=== PATIENT | female | born 1970 | race Caucasian/White ===

== ENCOUNTER → 2020-10-31 09:05 | Outpatient (BNVA) | payer MEDICAID, SELFPAY | PROVIDERS: PCP Nurse Practitioner Family; Visit Provider Internal Medicine Rheumatology | DX: M25.50 Pain in unspecified joint (principal); M75.52 Bursitis of left shoulder; M19.041 Primary osteoarthritis, right hand; M19.042 Primary osteoarthritis, left hand; M47.892 Other spondylosis, cervical region; Z79.899 Other long term (current) drug therapy; Z11.1 Encounter for screening for respiratory tuberculosis; Z71.89 Other specified counseling; F17.200 Nicotine dependence, unspecified, uncomplicated | CPT/HCPCS: 20610; 99204 ==

== ENCOUNTER 2020-10-31 11:51 | Outpatient (CLI) | payer MEDICAID, SELFPAY ==
--- NOTE | 2020-10-31 12:03 | XR_ITS ---
WS: [id number] CHEST 2 VIEWS HISTORY: M19.90 - Unspecified osteoarthritis, unspecified site COMPARISON: None available. Lungs: Clear with no abnormality. No pleural effusion or pneumothorax. Cardiac size: Normal. Mediastinum/Aorta: Normal mediastinum. Bones: Normal. XR/XR chest 2V* [id number] IMPRESSION: Normal chest.
--- NOTE | 2020-10-31 12:03 | XR_ITS ---
WS: [id number] Right hand, 3 views, 10/31/2020 Clinical Data: M19.90 - Unspecified osteoarthritis, unspecified site Comparison: None. Findings: There is osteoarthritis of the right first IP joint and all the DIP joints of the second th rough fifth fingers with flexion deformity of the second through fifth DIP joints. There is osteoarth ritic change at the second through fifth PIP joints which is less severe. No fractures or dislocation s are seen. The soft tissues are normal. No periarticular demineralization or calcifications are seen . XR/XR hand RT min 3V* [id number] Impression: Osteoarthritis of the PIP and DIP joints of the right hand.
--- NOTE | 2020-10-31 12:03 | XR_ITS ---
WS: [id number] Left foot, 3 views, 10/31/2020 Clinical Data: M19.90 - Unspecified osteoarthritis, unspecified site Comparison: None. Findings: No fractures or dislocations are seen. No bone destruction or erosion is noted. The joint spaces and soft tissues are normal. No periarticular demineralization or calcifications are seen. There is an Achilles spur. XR/XR foot LT min 3V* [id number] Impression: Negative left foot.
--- NOTE | 2020-10-31 12:03 | XR_ITS ---
WS: [id number] Left hand, 3 views, 10/31/2020 Clinical Data: M19.90 - Unspecified osteoarthritis, unspecified site Comparison: None. Findings: There is osteoarthritic change of the second through fifth DIP joints of the left hand and the patien t left first IP joint. There is minimal osteoarthritic change of the second through fifth PIP joints with a soft tissue calcification on the radial side of the third PIP joint. There are no fractures or dislocations. No periarticular demineralization is noted. XR/XR hand LT min 3V* [id number] Impression: Osteoarthritis of the DIP and PIP joints of the left hand.
--- NOTE | 2020-10-31 12:03 | XR_ITS ---
WS: [id number] Cervical spine, 3 views, 10/31/2020 Clinical Data: M19.90 - Unspecified osteoarthritis, unspecified site Comparison: None. Findings: No compression fractures are seen. There is osteoarthritic spurring at C5-C6 with disc narr owing. There is an anterior-inferior spur at C4 There is minimal osteoarthritis in the left C1-C2 art iculation. There is no prevertebral soft tissue swelling. The odontoid is unremarkable. The lung api vickie are normal. There is minimal calcification in the region of the carotid bifurcations. XR/XR cervical spine 3V* [id number] Impression: Osteoarthritis at C4 and C5-C6 with accompanying disc space narrowing and minim al osteoarthritis on the left at the C1-C2 articulation.
--- NOTE | 2020-10-31 12:03 | XR_ITS ---
WS: [id number] Right foot, 3 views, 10/31/2020 Clinical Data: M19.90 - Unspecified osteoarthritis, unspecified site Comparison: None. Findings: No fractures or dislocations are seen. No bone destruction or erosion is noted. The joint spaces and soft tissues are normal. No periarticular demineralization or calcifications are seen. XR/XR foot RT min 3V* [id number] Impression: Negative right foot.
[2020-10-31 13:19] LABS: C Reactive Protein 2.3 mg/L (0.0-4.9)
[2020-10-31 13:25] LABS: Erythrocyte Sedimentation Rate 33 mm/hr (0-15)
[2020-10-31 13:34] LABS: 25 Hydroxy Vitamin D 36 ng/mL (30-100)
[2020-11-01 16:02] LABS: Cyclic Citrullinated Peptide <16 UNITS
[2020-11-02 14:16] LABS: Quantiferon Mitogen >10.00 IU/mL; Quantiferon Nil 0.02 IU/mL; Quantiferon TB Gold NEGATIVE (NEGATIVE)
== END 2020-10-31 11:52 | disposition home or self-care (01) ==
PROVIDERS: PCP Nurse Practitioner Family; Visit Provider Internal Medicine Rheumatology
DX: M19.90 Unspecified osteoarthritis, unspecified site (principal); M25.50 Pain in unspecified joint; Z79.899 Other long term (current) drug therapy; M25.512 Pain in left shoulder; M71.9 Bursopathy, unspecified
CPT/HCPCS: 36415; 71046; 72040; 73130; 73630; 82306; 85651; 86140; 86431; 86480; 96372; J1030

== ENCOUNTER → 2021-06-05 15:11 | Outpatient (BNVA) | payer MEDICAID, SELFPAY | PROVIDERS: PCP Nurse Practitioner Family; Visit Provider Internal Medicine Rheumatology | DX: M19.041 Primary osteoarthritis, right hand (principal); M19.042 Primary osteoarthritis, left hand; Z79.899 Other long term (current) drug therapy | CPT/HCPCS: 80076; 82565; 85025; 86140 ==

== ENCOUNTER → 2021-08-15 14:35 | Outpatient (BNVA) | payer MEDICAID, SELFPAY | PROVIDERS: PCP Nurse Practitioner Family; Visit Provider Internal Medicine Rheumatology | DX: M15.4 Erosive (osteo)arthritis (principal); M47.892 Other spondylosis, cervical region; Z79.899 Other long term (current) drug therapy; M75.52 Bursitis of left shoulder | CPT/HCPCS: 99214 ==

== ENCOUNTER → 2022-01-21 11:41 | Outpatient (BNVA) | payer MEDICAID, SELFPAY | PROVIDERS: Visit Provider Emergency Medicine | DX: R06.02 Shortness of breath (principal) | CPT/HCPCS: 71046 ==

== ENCOUNTER 2022-01-31 16:15 | Outpatient (CLI) | payer MEDICAID, SELFPAY ==
[2022-01-31] MEDS: iohexol 350 mg/mL 500 mL Btl (per mL) IV (16:38)
--- NOTE | 2022-01-31 17:00 | CTR_ITS ---
PROCEDURE INFORMATION: Exam: CT Chest With Contrast; Diagnostic Exam date and time: 01/31/2022 4:29 PM Age: 51 years old Clinical indication: Patient HX: History--recent pneumonia and bronchitis, hard coughing, RT low rib pain; Additional info: J18.9 - pneumonia, unspecified organism TECHNIQUE: Imaging protocol: Diagnostic computed tomography of the chest with contrast. Radiation optimization: All CT scans at this facility use at least one of these dose optimization techniques: automated exposure control; mA and/or kV adjustment per patient size (includes targeted exams where dose is matched to clinical indication); or iterative reconstruction. Contrast material: OMNI 350; Contrast volume: 80 ml; Contrast route: INTRAVENOUS (IV); COMPARISON: CR XR chest 2V* [id number] 01/21/2022 12:10 PM RADIATION DOSE METRICS: Total DLP (mGy-cm): 778.09 FINDINGS: Lungs: Unremarkable. No consolidation. No masses. Pleural spaces: Unremarkable. No pneumothorax. No pleural effusion. Heart: Unremarkable. No cardiomegaly. No pericardial effusion. Lymph nodes: Unremarkable. No enlarged lymph nodes. Vasculature: Unremarkable. No aortic aneurysm. Bones/joints: Unremarkable. No acute fracture. Soft tissues: Subcutaneous fat stranding in the lateral right lower chest and abdominal upper quadrant. There also seems to be some smooth muscular thickening. CT/CT chest w con* [id number] IMPRESSION: 1. Intramuscular hematoma in the lateral right upper quadrant the abdomen with adjacent fat stranding changes. No active bleeding seen. 2. No acute intrathoracic abnormality.
== END 2022-01-31 16:16 | disposition home or self-care (01) ==
LOC: RAD 16:16
PROVIDERS: Visit Provider Emergency Medicine
DX: J18.9 Pneumonia, unspecified organism (principal)
CPT/HCPCS: 71260

== ENCOUNTER → 2022-03-18 11:06 | Outpatient (BNVA) | payer MEDICAID, SELFPAY | PROVIDERS: Visit Provider Nurse Practitioner Family | DX: R68.89 Other general symptoms and signs (principal); M62.830 Muscle spasm of back; J22 Unspecified acute lower respiratory infection | CPT/HCPCS: 87400; 87426 ==

== ENCOUNTER → 2022-04-23 15:28 | Outpatient (BNVA) | payer MEDICAID, SELFPAY | PROVIDERS: Visit Provider Family Medicine | DX: J44.9 Chronic obstructive pulmonary disease, unspecified (principal); M19.90 Unspecified osteoarthritis, unspecified site; L73.2 Hidradenitis suppurativa; Z13.1 Encounter for screening for diabetes mellitus; Z13.6 Encounter for screening for cardiovascular disorders; M15.4 Erosive (osteo)arthritis; Z72.0 Tobacco use; F41.9 Anxiety disorder, unspecified; F10.21 Alcohol dependence, in remission; Z51.81 Encounter for therapeutic drug level monitoring; Z76.89 Persons encountering health services in other specified circumstances; M54.12 Radiculopathy, cervical region | CPT/HCPCS: 85025 ==

== ENCOUNTER → 2022-07-14 14:13 | Outpatient (BNVA) | payer MEDICAID, SELFPAY | PROVIDERS: PCP Family Medicine; Visit Provider Family Medicine | DX: M19.90 Unspecified osteoarthritis, unspecified site (principal); Z79.899 Other long term (current) drug therapy; Z13.6 Encounter for screening for cardiovascular disorders; Z13.1 Encounter for screening for diabetes mellitus; J44.9 Chronic obstructive pulmonary disease, unspecified; S69.91XA Unspecified injury of right wrist, hand and finger(s), initial encounter; R53.83 Other fatigue; R35.89 Other polyuria; Z83.3 Family history of diabetes mellitus; X58.XXXA Exposure to other specified factors, initial encounter | CPT/HCPCS: 73130; 80048; 80061; 80076; 82565; 83036; 84443; 85025; 86140 ==

== ENCOUNTER → 2022-12-02 09:45 | Outpatient (BNVA) | payer MEDICAID, SELFPAY | PROVIDERS: PCP Family Medicine; Referring Provider Internal Medicine Rheumatology; Visit Provider Internal Medicine Rheumatology | DX: M19.90 Unspecified osteoarthritis, unspecified site (principal); Z79.899 Other long term (current) drug therapy | CPT/HCPCS: 80076; 82565; 85025; 86140 ==

== ENCOUNTER → 2023-01-13 08:58 | Outpatient (BNVA) | payer MEDICAID, SELFPAY | PROVIDERS: PCP Family Medicine; Referring Provider Family Medicine; Visit Provider Surgery | DX: R22.43 Localized swelling, mass and lump, lower limb, bilateral (principal) | CPT/HCPCS: 99204 ==

== ENCOUNTER 2023-01-29 14:08 | Outpatient (CLI) | payer MEDICAID, SELFPAY ==
--- NOTE | 2023-01-29 | US_ITS ---
WS: [id number] ULTRASOUND SOFT TISSUES RIGHT lower extremity. HISTORY: Palpable area mid RIGHT tibia. COMPARISON: None available. TECHNIQUE: 2-D and color Doppler imaging is submitted. No obvious abnormalities noted over the mid RIGHT tibia at the area of the superficial soft tissue no dule. IMPRESSION: Negative ultrasound mid RIGHT tibia.
--- NOTE | 2023-01-29 15:00 | US_ITS ---
WS: [id number] ULTRASOUND SOFT TISSUES LEFT tibia. HISTORY: Palpable nodule mid LEFT tibia and LEFT ankle. COMPARISON: None available. TECHNIQUE: 2-D and color Doppler imaging is submitted. Ultrasound is directed to the areas of palpable abnormality as indicated by the patient. There is no underlying mass or soft tissue identified at either location over the mid tibia or ankle. IMPRESSION: Negative ultrasound mid LEFT tibia and ankle.
== END 2023-01-29 14:09 | disposition home or self-care (01) ==
LOC: RAD 14:09
PROVIDERS: PCP Family Medicine; Visit Provider Surgery
DX: R22.43 Localized swelling, mass and lump, lower limb, bilateral (principal)
CPT/HCPCS: 76882

== ENCOUNTER → 2023-02-11 15:30 | Outpatient (BNVA) | payer MEDICAID, SELFPAY | PROVIDERS: PCP Family Medicine; Visit Provider Surgery | DX: M79.604 Pain in right leg (principal); M79.605 Pain in left leg; Z09 Encounter for follow-up examination after completed treatment for conditions other than malignant neoplasm | CPT/HCPCS: 99212 ==

== ENCOUNTER 2023-02-24 13:56 | Outpatient (CLI) | payer MEDICAID, SELFPAY ==
--- NOTE | 2023-02-24 14:00 | CT_ITS ---
WS: [id number] LDCT LUNG CANCER SCREENING TECHNIQUE: Noncontrast CT of the chest with coronal and sagittal reformatted images. CLINICAL INFORMATION: Z12.2 - Encounter for screening for malignant neoplasm of... COMPARISON: CT chest 01/31/2022 DLP: 77.82 mGy.cm DIvol: Mean CTDIvol: 1.80 (mGy) All CT scans at [facility] use at least one of these dose optimization techniques: automat ed exposure control; mA and/or kV adjustment per patient size (includes targeted exams where dose is matched to clinical indication); or iterative reconstruction. FINDINGS: 6.5 mm noncalcified nodule LEFT upper lobe near the lung apex. Aortic calcification. Coronary calcification. Mediastinal or hilar lymphadenopathy. No axillary lymph adenopathy. Glands are normal. Partially visualized patent megaly. Normal GE junction. Partially visu alized fat-containing lesion upper pole RIGHT kidney compatible with angiomyolipoma. IMPRESSION: CT/CT lung screening [id number] LUNG-RADS: 2-Benign Appearance or Behavior FOLLOW UP: 12 Month: Continue annual screening with LDCT
--- NOTE | 2023-02-24 14:05 | USCV_ITS ---
Alem Nevarez Age: 52 Gender: F : 1970 Exam Date: 02/24/2023 14:25 Ordering Phys: Melonie Marie MD Technologist: Exam Location: [facility] [place] Indication: pedal edema BP: 125 / 70 HR: 79 Rhythm: Sinus Technical Quality: Adequate MEASUREMENTS (Male / Female) Normal Values 2D ECHO LV Diastolic Diameter PLAX 3.6 cm 4.2 - 5.9 / 3.9 - 5.3 cm LV Systolic Diameter PLAX 3.0 cm IVS Diastolic Thickness 0.8 cm 0.6 - 1.0 / 0.6 - 0.9 cm IVS Systolic Thickness 1.5 cm LVPW Diastolic Thickness 3.6 cm 0.6 - 1.0 / 0.6 - 0.9 cm LVPW Systolic Thickness 1.4 cm LVOT Diameter 2.1 cm LV Ejection Fraction 2D Teich 61.2 % LV Ejection Fraction MOD 2C 78.0 % LV Ejection Fraction 2C AL 78.6 % LA Diameter 3.3 cm IVC Diameter 1.7 cm M-MODE Aortic Annulus Diameter 3.4 cm LA Ao Ratio MM 1.0 MV E Point Septal Separation 0.8 cm DOPPLER AV Peak Velocity 137.0 cm/s LVOT Peak Velocity 106.0 cm/s AV Area Cont Eq vti 2.3 cm squared AV Area Cont Eq pk 2.6 cm squared MV Area PHT 5.0 cm squared Mitral E to A Ratio 0.8 MV E' Velocity 38.5 cm/s Mitral E to MV E' Ratio 6.2 Mitral E to LV E' Lateral Ratio 6.5 Mitral E to LV E' Septal Ratio 6.0 TR Peak Velocity 249.3 cm/s TR Peak Gradient 24.9 mmHg TV Peak E Velocity 83.0 cm/s Right Atrial Pressure 3.0 mmHg Pulmonary Artery Systolic Pressu 27.9 mmHg RV Acceleration Time 0.1 s FINDINGS Left Ventricle Normal left ventricular size and systolic function, EF 70 %. Mild left ventricular hypertrophy. No regional wall motion abnormalities. Grade I/IV diastolic dysfunction (abnormal relaxation filling pattern), normal to mildly elevated filling pressures. Right Ventricle The right ventricle is normal in size and function. Right Atrium The right atrium is normal in size. Left Atrium The left atrium is normal in size. Mitral Valve Mildly thickened mitral valve. Aortic Valve No gross abnormalities noted Tricuspid Valve Trace tricuspid valve regurgitation. Pulmonic Valve Pulmonic valve not well visualized. Pericardium Normal pericardium without effusion. Aorta Normal ascending aorta dimension. IVC Normal inferior vena cava. CONCLUSIONS Normal left ventricular size and systolic function, EF 70 %. Mild left ventricular hypertrophy. No regional wall motion abnormalities. Grade I/IV diastolic dysfunction (abnormal relaxation filling pattern), normal to mildly elevated filling pressures. Trace tricuspid valve regurgitation. Normal chamber sizes There is no pericardial effusion. No similar previous studies are available for comparison Dr Binh Hsieh MD [facility] (Electronically Signed) Final Date: 24 February 2023 20:10 S
== END 2023-02-24 13:57 | disposition home or self-care (01) ==
LOC: RAD 13:57
PROVIDERS: PCP Family Medicine; Visit Provider Family Medicine
DX: R91.1 Solitary pulmonary nodule (principal); Z12.2 Encounter for screening for malignant neoplasm of respiratory organs; F17.210 Nicotine dependence, cigarettes, uncomplicated; R06.02 Shortness of breath; R60.9 Edema, unspecified
CPT/HCPCS: 71271; 93306

== ENCOUNTER → 2023-04-20 13:12 | Outpatient (BNVA) | payer MEDICAID, SELFPAY | PROVIDERS: PCP Family Medicine; Referring Provider Family Medicine; Visit Provider Internal Medicine Pulmonary Disease | DX: J41.0 Simple chronic bronchitis (principal); R91.1 Solitary pulmonary nodule; Z72.0 Tobacco use; R07.89 Other chest pain; J98.6 Disorders of diaphragm | CPT/HCPCS: 99204 ==

== ENCOUNTER → 2023-10-05 15:29 | Outpatient (BNVA) | payer OTHER, SELFPAY | PROVIDERS: PCP Family Medicine; Visit Provider Family Medicine | DX: M19.90 Unspecified osteoarthritis, unspecified site (principal); I50.32 Chronic diastolic (congestive) heart failure; Z51.81 Encounter for therapeutic drug level monitoring | CPT/HCPCS: 80053; 80061; 82607; 85025; 85651; 86140 ==

== ENCOUNTER → 2024-07-13 11:27 | Outpatient (BNVA) | payer OTHER, SELFPAY | PROVIDERS: PCP Family Medicine; Visit Provider Family Medicine | DX: M19.90 Unspecified osteoarthritis, unspecified site (principal); M54.2 Cervicalgia; G89.29 Other chronic pain; J41.0 Simple chronic bronchitis; M54.12 Radiculopathy, cervical region; I50.32 Chronic diastolic (congestive) heart failure | CPT/HCPCS: 85025 ==

== ENCOUNTER 2024-10-25 12:59 | Outpatient (CLI) | payer OTHER, SELFPAY ==
--- NOTE | 2024-10-25 13:15 | XRR_ITS ---
PROCEDURE INFORMATION: Exam: XR Right Hand Exam date and time: 10/25/2024 1:45 PM Age: 54 years old Clinical indication: Injury or trauma; Blunt trauma (contusions or hematomas); Hand; Right; Additional info: S60.021a - contusion of right index finger without damage. . . TECHNIQUE: Imaging protocol: Radiologic exam of the right hand. Views: 3 or more views. COMPARISON: CR XR hand RT min 3V* [id number] 07/14/2022 2:22 PM FINDINGS: Bones/joints: Normal alignment. No acute fracture. Extensive distal greater than proximal interphalangeal joint proliferative changes. Soft tissues: Second digit soft tissue swelling. XR/XR hand RT min 3V* [id number] IMPRESSION: Osteoarthritis without evidence of acute osseous abnormality.
--- NOTE | 2024-10-25 13:43 | XRR_ITS ---
PROCEDURE INFORMATION: Exam: XR Cervical Spine Exam date and time: 10/25/2024 1:48 PM Age: 54 years old Clinical indication: Cervicalgia; Lt sided neck pain & tightness x few months. Previous FX on neck; Additional info: M54.2 - cervicalgia TECHNIQUE: Imaging protocol: Radiologic exam of the cervical spine. Views: 2 or 3 views. COMPARISON: CR XR cervical spine 3V* [id number] 10/31/2020 12:13 PM FINDINGS: Bones/joints: Loss of intervertebral disc space height and marginal spurring C5-C6. Multilevel facet arthropathy. [place] odontoid proliferative change. Soft tissues: Unremarkable. Vasculature: Bilateral carotid atherosclerotic disease. Other findings: Patient is edentulous. XR/XR cervical spine 3V* [id number] IMPRESSION: Multilevel cervical spondylosis without evidence of acute osseous abnormality.
== END 2024-10-25 13:00 | disposition home or self-care (01) ==
PROVIDERS: PCP Family Medicine; Visit Provider Family Medicine
DX: S60.021A Contusion of right index finger without damage to nail, initial encounter (principal); X58.XXXA Exposure to other specified factors, initial encounter; M54.2 Cervicalgia; G89.29 Other chronic pain; M47.812 Spondylosis without myelopathy or radiculopathy, cervical region; M19.041 Primary osteoarthritis, right hand
CPT/HCPCS: 72040; 73130